=== PATIENT | female | born 1975 | race Caucasian/White ===

== ENCOUNTER 2024-07-15 10:48 | Emergency (ER) | payer OTHER, SELFPAY ==
[2024-07-15 10:52] VITALS: BP 171/103; PULSE 84; RESP 19; TEMP 36.8; O2SAT 98
--- NOTE | 2024-07-15 11:16 | EKG12_ITS ---
Test Reason : DIZZY Blood Pressure : */* mmHG Vent. Rate : 87 BPM Atrial Rate : 87 BPM P-R Int : 130 ms QRS Dur : 88 ms QT Int : 376 ms P-R-T Axes : 17 2 13 degrees QTcB Int : 452 ms Normal sinus rhythm Moderate voltage criteria for LVH, may be normal variant ( R in aVL , David product ) Cannot rule out Anterior infarct , age undetermined Abnormal ECG Confirmed by Walter Ruby [id number]), graphics editor MATT SOLIS ([id number]) on 07/16/2024 9:17:27 AM Referred By: KIERA Confirmed By: Walter Ruby
--- NOTE | 2024-07-15 11:19 | EDS_ITS ---
HPI <BYRON Feliciano - Last Filed: 07/15/24 12:52> History of Present Illness Chief Complaint: Dizziness Narrative Narrative: 48-year-old female with past medical history of HTN, CVA presents with headache and lightheadedness. She states over the last few days she has had a mild left temporal headache. She did not think much of it and occasionally took Advil. Last night she felt lightheaded but went to bed and says she slept well. 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 It resolved and she went to work where she was standing for about an hour and then started to have a worsening headache in both her hands felt hot and tingly and she felt nauseated. She felt a little improved with sitting down. She states the room felt offkilter but she was not spinning or having sensation of movement. She had no vision loss or diplopia. No chest pain or shortness of breath. She states her blood pressure has been running high recently and her doctor increased her losartan about a month ago and her hydrochlorothiazide a week ago but when she checked it during this episode this morning it was still high over 200. She took her medicine around 7 AM this morning. She states about 10 years ago she had a small stroke from hypertension which caused some residual numbness in her left hand. She was on aspirin for a brief period but it was stopped. She has a history of ITP. PFS <BYRON Feliciano - Last Filed: 07/15/24 12:52> [facility] Home Medications ?Medication ?Instructions ?Recorded ?Last Taken ?Type cholecalciferol (vitamin D3) 25 5,000 unit PO DAILY 07/15/24 Unknown History mcg (1,000 unit) tablet colchicine 0.6 mg tablet 0.6 mg PO BID 07/15/24 Unknown History hydrochlorothiazide 25 mg tablet 25 mg PO DAILY 07/15/24 Unknown History losartan 50 mg tablet (Cozaar) 50 mg PO DAILY 07/15/24 Unknown History omega-3 fatty acids 1,000 mg 1,000 mg PO DAILY 07/15/24 Unknown History capsule ([place]-3) pantoprazole 20 mg tablet,delayed 20 mg PO DAILY 07/15/24 Unknown History release (Protonix) sertraline 50 mg tablet (Zoloft) 25 mg PO DAILY 07/15/24 Unknown History Allergy/AdvReac Type Severity Reaction Status Date / Time No Known Allergies Allergy Verified 07/15/24 10:55 Social History Smoking Status: Light Smoker (<10/day) ROS <BYRON Feliciano - Last Filed: 07/15/24 12:52> ROS ED ROS Narrative Constitutional: Negative for fever, chills, malaise. CVS: Negative for chest pain, syncope. Respiratory: Negative for shortness of breath, cough, orthopnea. GI: Negative for abdominal pain, nausea, vomiting, melena, hematochezia. : Negative for dysuria. Neuro: Positive for headache. Negative for motor/sensory dysfunction. EXAM <BYRON Feliciano - Last Filed: 07/15/24 12:52> Physical Exam Narrative Exam Narrative: CONST: Patient sitting in no acute distress. EYES: Normal inspection. PERRL, EOMI. Visual irby intact. ENT: Normal inspection, moist mucous membranes. NECK: Normal inspection. RESP: No respiratory distress, CTAB. CVS: Regular rate and rhythm, no murmur, no gallop. SKIN: Color normal, no rash, warm, dry, intact. EXTREMITIES: Normal appearance, no pedal edema. NEURO: Alert and oriented, EOMI, visual irby intact, face symmetric, no upper or lower extremity drift, normal [id number] and ewvs-bk-gfod, normal sensation, no aphasia or dysarthria, no extinction. NIH is 0. PSYCH: Normal affect. Const Vital Signs: 07/15/24 10:52 07/15/24 11:54 Temperature 98.3 F Temperature Source Oral Pulse Rate 84 Respiratory Rate 19 H Blood Pressure 171/103 H 158/91 H Blood Pressure Mean 125 113 Pulse Ox 98 Oxygen Delivery Method Room Air <Dr. Junior Viera MD - Last Filed: 07/15/24 12:46> Physical Exam Const Vital Signs: 07/15/24 10:52 07/15/24 11:54 Temperature 98.3 F Temperature Source Oral Pulse Rate 84 Respiratory Rate 19 H Blood Pressure 171/103 H 158/91 H Blood Pressure Mean 125 113 Pulse Ox 98 Oxygen Delivery Method Room Air MDM <BYRON Feliciano - Last Filed: 07/15/24 12:52> MDM MDM Narrative Medical decision making narrative: 48-year-old female with past medical history of HTN, CVA presents for evaluation of recent headache and disequilibrium. She appears well and nontoxic. BP was 171/103 with otherwise normal vital signs. It did come down to 158/91 without intervention. I cannot reproduce her symptoms on exam and she has a normal neurological exam with NIH of 0. She is not clearly describing vertigo but does report a sensation of disequilibrium. EKG is normal sinus rhythm with no ischemic changes. Basic labs unremarkable. CT brain shows subacute infarct in the medial posterior left occipital lobe. Patient will need hospitalization for stroke workup but is a [employer] employee with [facility] insurance so will need transferred for this reason. I discussed the case with [facility] hospitalist Dr. Holt who accepted the patient at 12:45 PM and she is awaiting a bed. She was treated with aspirin 325 mg here. She did not require blood pressure treatment. Lab Data Attestation: I reviewed the patient's lab results. Labs: Laboratory Results - last 24 hr 07/15/24 10:44 WBC 9.0 RBC 4.98 Hgb 14.1 Hct 41.3 MCV 82.9 MCH 28.3 MCHC 34.1 RDW Std Deviation 41.6 RDW Coeff of Ailin 14.0 Plt Count 75 L MPV 12.4 H Immature Gran % (Auto) 1.000 H Neut % (Auto) 77.5 H Lymph % (Auto) 13.5 L Emanuel % (Auto) 5.9 Eos % (Auto) 1.7 Baso % (Auto) 0.4 Absolute Neuts (auto) 7.0 Absolute Lymphs (auto) 1.22 Nucleated RBC % 0 Differential Comment SCANNED Platelet Estimate MOD DEC RBC Morphology NORM C+C Sodium 137 Potassium 3.9 Chloride 102 Carbon Dioxide 26.0 Anion Gap 9 BUN 19 H Creatinine 1.05 H Est GFR (MDRD) Af Amer 72 Est GFR (MDRD) Non-Af 59 L BUN/Creatinine Ratio 18.1 Glucose 105 Calcium 9.7 Radiography Diagnostic Testing: Clinical Impression(s) from Imaging Studies Brain CT 07/15/24 11:20 IMPRESSION: Findings suggestive of subacute infarction involving the medial posterior left occipital lobe. Electronically Signed: Tu Saenz MD at 11:48 EST , Chest X-Ray 07/15/24 11:27 IMPRESSION: Normal x-ray examination of the chest. Electronically Signed: Tu Saenz MD at 11:48 EST , ED attending interpretation of 1-view chest x-ray shows normal heart size, no acute infiltrate. EKG Initial EKG: Attestation: I personally reviewed and interpreted this EKG as follows: Interpretation: Sinus Rhythm and No Acute Injury Pattern Comments: Normal sinus rhythm 87 bpm Moderately active criteria for LVH may be normal variant Normal intervals, no acute ischemic changes <Dr. Junior Viera MD - Last Filed: 07/15/24 12:46> [facility] Lab Data Labs: Laboratory Results - last 24 hr 07/15/24 10:44 WBC 9.0 RBC 4.98 Hgb 14.1 Hct 41.3 MCV 82.9 MCH 28.3 MCHC 34.1 RDW Std Deviation 41.6 RDW Coeff of Ailin 14.0 Plt Count 75 L MPV 12.4 H Immature Gran % (Auto) 1.000 H Neut % (Auto) 77.5 H Lymph % (Auto) 13.5 L Emanuel % (Auto) 5.9 Eos % (Auto) 1.7 Baso % (Auto) 0.4 Absolute Neuts (auto) 7.0 Absolute Lymphs (auto) 1.22 Nucleated RBC % 0 Differential Comment SCANNED Platelet Estimate MOD DEC RBC Morphology NORM C+C Sodium 137 Potassium 3.9 Chloride 102 Carbon Dioxide 26.0 Anion Gap 9 BUN 19 H Creatinine 1.05 H Est GFR (MDRD) Af Amer 72 Est GFR (MDRD) Non-Af 59 L BUN/Creatinine Ratio 18.1 Glucose 105 Calcium 9.7 Radiography Diagnostic Testing: Clinical Impression(s) from Imaging Studies Brain CT 07/15/24 11:20 IMPRESSION: Findings suggestive of subacute infarction involving the medial posterior left occipital lobe. Electronically Signed: Tu Saenz MD at 11:48 EST , Chest X-Ray 07/15/24 11:27 IMPRESSION: Normal x-ray examination of the chest. Electronically Signed: Tu Saenz MD at 11:48 EST , Treatment and Re-Evaluation Comments:: I have personally performed a face to face assessment of the patient and have reviewed the FLORECITA Note. I performed a substantive portion of the visit including all aspects of the following. My barrera findings include: History is gradual onset headaches and fatigue for several days, episodic disequilibrium today off and on all morning that is relatively brief but without any triggers such as emotion change, head turning. Made it difficult for her to focus on her vision as well. No vomiting. No diplopia or vision loss. States that the current moment while sitting or resting she does not have diz ziness/disequilibrium. Exam is NAD normal kbpulp-jy-nfge and eogd-lg-yshi and normal neurologic exam with NIHSS 0. Patient not having vertiginous symptoms right now, so head impulse test not performed but the skew test is normal and she has no pathologic nystagmus. Performed a Rose Mary-Hallpike and it is negative. TMs with slight erythema but no effusion or perforation. Medical Decison Making patient's pressure elevated in the 170s, with observation of came down to 158/91. I do not think accelerated hypertension is simply causing all of the symptoms. My concern is that the tension of symptoms could be central in etiology especially with a history of that and not being on any antiplatelets anymore, and that the blood pressure could be reflexive. With feeling poorly all weekend, stroke alert was not called. We performed a plain CT of the head, I reviewed the images and result which I agree with, it basically shows a subacute occipital infarct that could be causing this. If it looks more subacute, it is probably not her old TIA/stroke, she states they gave her some numbness in the left arm that did not persist. This was done in [place]. Admission and further workup is warranted, but the patient has insurance that does not cover her admission here so for that reason reaching out for transfer. A chest x-ray was also performed, 1 view on my interpretation is normal with n arrow mediastinum. Other additions or changes: [None] Discharge Plan Triage Chief Complaint: Dizziness Other Complaint: Hypertension ED Midlevel Provider: Marilyn Beard ED Provider: Junior Viera Dx/Rx/DC Orders Clinical Impression: CVA (cerebral vascular accident), Hypertension, Disequilibrium Prescriptions: No Action losartan [Cozaar] 50 mg tablet 50 mg PO DAILY cholecalciferol (vitamin D3) 25 mcg (1,000 unit) tablet 5,000 unit PO DAILY hydrochlorothiazide 25 mg tablet 25 mg PO DAILY omega-3 fatty acids [Super [place]-3] 1,000 mg capsule 1,000 mg PO DAILY pantoprazole [Protonix] 20 mg tablet,delayed release (DR/EC) 20 mg PO DAILY sertraline [Zoloft] 50 mg tablet 25 mg PO DAILY colchicine 0.6 mg tablet 0.6 mg PO BID Primary Care Provider: Jana Lyn Referrals: Jana Lyn, [employer] [Primary Care Provider] - Print Language: Indonesian
--- NOTE | 2024-07-15 11:20 | CT_ITS ---
STUDY: CT BRAIN WITHOUT CONTRAST REASON FOR EXAM: Female, 48 years old. Headache RADIATION DOSAGE (If Supplied By Facility): CTDIvol = ( 44.99 ) mGy, DLP = ( 796.11 ) mGycm TECHNIQUE: Transaxial CT imaging of the brain was performed without administration of intravenous contrast material. Individualized dose optimization techniques were used for this CT. COMPARISON: No relevant priors. FINDINGS: Normal soft tissue structures. Normal calvarium. Normal size ventricles and extra-axial spaces for the patient''s age. Focal encephalomalacia is seen in the posterior right parietal occipital lobes. Focal area of decreased attenuation is now seen in the medial posterior left occipital lobe. Subacute infarction should be ruled out. Normal basal ganglia and thalami. Normal brainstem. Normal cerebellum. There is no intracranial hemorrhage. Atherosclerotic calcification of the cavernous portions of the internal carotid arteries bilaterally. Mild degree of mucosal thickening of the ethmoid sinuses. CT/Brain/Head without Contrast IMPRESSION: Findings suggestive of subacute infarction involving the medial posterior left occipital lobe. Electronically Signed: Tu Saenz MD at 11:48 EST ,
[2024-07-15 11:27] LABS: Absolute Lymphocyte Count 1.22 X10^3/uL (0.83-4.51); Basophil# 0.04 X10^3/uL; Basophil% 0.4 % (0-1); Eosinophil# 0.15 X10^3/uL; Eosinophils% 1.7 % (0-5); Hematocrit 41.3 % (37-47); Hemoglobin 14.1 g/dL (12.0-15.0); Lymphocyte # 1.22 X10^3/ul (0.83-4.51); Lymphocyte % 13.5 % (19-41); Mean Corp Hgb Conc 34.1 g/dL (32-36); Mean Corpuscular Hgb 28.3 pg (27.0-32.0); Mean Corpuscular Volume 82.9 fL (81-99); Mean Platelet Vol. 12.4 fl (6.2-12.0); Monocyte# 0.53 X10^3/uL; Monocyte% 5.9 % (0-10); NRBC Flagged by Analyzer 0 % (0-5); Neutrophil # 6.99 X10^3/uL (2.7-7.7); Neutrophil % 77.5 % (47-70); POSITIVE COUNT YES; Platelet Count 75 K/mm3 (150-450); RBC Distribution Width SD 41.6 fl (35.1-43.9); Red Blood Count 4.98 M/mm3 (4.2-5.4)
--- NOTE | 2024-07-15 11:27 | RAD_ITS ---
STUDY: X-RAY CHEST REASON FOR EXAM: Female, 48 years old. Lightheaded TECHNIQUE: Single AP portable view of the chest. COMPARISON: None. FINDINGS: EKG electrodes are seen. The lungs are clear and expanded. There is no demonstrated pleural abnormality. Normal size heart. Normal mediastinum and masoud. Normal visualized pulmonary arteries. Normal visualized aortic arch and descending thoracic aorta. Normal visualized thoracic spine. Normal visualized ribs, clavicles, and shoulders. There is no demonstrated abnormality of the visualized soft tissue structures of the upper abdomen. RAD/Chest 1 View (Portable) IMPRESSION: Normal x-ray examination of the chest. Electronically Signed: Tu Saenz MD at 11:48 EST ,
[2024-07-15 11:28] LABS: Differential Indicated SCAN CRITERIA MET
[2024-07-15 11:39] LABS: Anion Gap 9 (5-15); BUN 19 mg/dL (7-18); BUN/Creat Ratio 18.1 RATIO (10-20); Calcium,Total 9.7 mg/dL (8.5-10.1); Chloride 102 mmol/L (98-107); Creatinine, Serum 1.05 mg/dL (0.55-1.02); EST Glomerular Filtration Rate 59 mL/min (>60); Est Glom Filt Rate - Afr Amer 72 mL/min (>60); Glucose 105 mg/dL (74-106); Potassium 3.9 mmol/L (3.5-5.1); Sodium Level 137 mmol/L (136-145)
[2024-07-15 11:54] VITALS: BP 158/91
[2024-07-15 12:10] LABS: Differential Comment SCANNED; Platelet Estimate MOD DEC (ADEQ); Red Cell Morphology NORM C+C NORMAL (NORM C&C)
[2024-07-15] MEDS: Aspirin 325 MG Tablet PO (12:21)
[2024-07-15 13:00] VITALS: BP 148/100; PULSE 84; RESP 19; O2SAT 98
--- NOTE | 2024-07-15 14:37 | ED.RN ---
Report given to floor RN at [facility]
[2024-07-15 14:53] VITALS: BP 147/98; PULSE 78; RESP 18; TEMP 36.8; O2SAT 97
[2024-07-15] MEDS: Acetaminophen 500 MG Tablet 1000 MG PO (14:57)
== END 2024-07-15 15:48 | disposition short-term general hospital (02) ==
PROVIDERS: Physician Assistant; Emergency Provider Emergency Medicine; PCP Nurse Practitioner Family; Visit Provider Emergency Medicine
DX: I63.9 Cerebral infarction, unspecified (principal); I10 Essential (primary) hypertension; R29.700 NIHSS score 0; F17.200 Nicotine dependence, unspecified, uncomplicated; Z79.899 Other long term (current) drug therapy; Z86.73 Personal history of transient ischemic attack (TIA), and cerebral infarction without residual deficits
CPT/HCPCS: 70450; 71045; 80048; 85025; 93005; 99285; A4216